=== PATIENT | female | born 1960 | race Caucasian/White ===

== ENCOUNTER 2020-10-14 07:22 | Outpatient (REF) | payer OTHER, SELFPAY ==
--- NOTE | 2020-10-14 07:27 | MM_ITS ---
EXAMINATION: MM SCREENING DIGITAL BREAST TOMOSYNTHESIS, BILATERAL CLINICAL INFORMATION: Screening. Asymptomatic. The lifetime risk of breast cancer based on the Tyrer-Cuzick Model is 13%. COMPARISON: Mammography: 10/07/2019, 09/19/2018, 04/12/2017, 02/23/2016, 12/31/2014 TECHNIQUE: Digital breast tomosynthesis is performed in both the craniocaudal and mediolateral oblique views along with computer-aided detection (CAD). Synthesized 2D images are generated from the tomosynthesis. FINDINGS: The breasts are heterogeneously dense, which may obscure small masses (ACR BI-RADS breast composition Category c). There are no significant masses, abnormal calcifications, or other abnormalities. There is biopsy clip marker anterior 12:00 left breast with stable calcifications anterior breasts. Neither breast shows interval mass or architectural abnormality or abnormal calcifications. No significant changes. MM/MM tomosynthesis screening BI IMPRESSION: No significant changes from prior studies. ASSESSMENT: BI-RADS 2: Benign RECOMMENDATION: Routine annual mammography screening. This patient's information was entered into a reminder system with a target due date for their next mammogram.
== END 2020-10-14 07:23 | disposition home or self-care (01) ==
LOC: HO.MAMMO 07:22
PROVIDERS: PCP Family Medicine; Visit Provider Family Medicine
DX: Z12.31 Encounter for screening mammogram for malignant neoplasm of breast (principal)
CPT/HCPCS: 77063; 77067

== ENCOUNTER 2021-11-15 12:24 | Outpatient (REF) | payer OTHER, SELFPAY ==
--- NOTE | ~2021-11-15 | MM_ITS ---
EXAMINATION: MM SCREENING DIGITAL BREAST TOMOSYNTHESIS, BILATERAL CLINICAL INFORMATION: Screening. Asymptomatic. The lifetime risk of breast cancer based on the Tyrer-Cuzick Model is 10%. COMPARISON: Mammography: 10/14/2020, 10/07/2019, 09/19/2018 TECHNIQUE: Digital breast tomosynthesis is performed in both the craniocaudal and mediolateral oblique views along with computer-aided detection (CAD). Synthesized 2D images are generated from the tomosynthesis. FINDINGS: The breasts are heterogeneously dense, which may obscure small masses (ACR BI-RADS breast composition Category c). There are scattered bilateral stable asymmetries and inhomogeneous pattern. No developing density or interval mass or architectural abnormality. Again, there is biopsy clip marker anterior 12:00 left breast with stable calcifications anterior upper left breast. Other bilateral scattered punctate and coarse round calcifications are again seen. The bilateral axilla and skin contours are unremarkable. No significant changes. MM/MM tomosynthesis screening BI IMPRESSION: No mammographic evidence of malignancy. ASSESSMENT: BI-RADS 2: Benign RECOMMENDATION: Routine annual mammography screening. This patient's information was entered into a reminder system with a target due date for their next mammogram.
== END 2021-11-15 12:25 | disposition home or self-care (01) ==
LOC: HO.MAMMO 12:24
PROVIDERS: PCP Family Medicine; Visit Provider Family Medicine
DX: Z12.31 Encounter for screening mammogram for malignant neoplasm of breast (principal)
CPT/HCPCS: 77063; 77067

== ENCOUNTER 2022-11-21 12:04 | Outpatient (REF) | payer OTHER, SELFPAY ==
--- NOTE | ~2022-11-21 | MM_ITS ---
EXAMINATION: MM SCREENING DIGITAL BREAST TOMOSYNTHESIS, BILATERAL CLINICAL INFORMATION: Screening. Asymptomatic. The lifetime risk of breast cancer based on the Tyrer-Cuzick Model is 10.4%. COMPARISON: Mammography: November 15, 2021 and studies dating back to December 16, 2013 TECHNIQUE: Digital breast tomosynthesis is performed in both the craniocaudal and mediolateral oblique views along with computer-aided detection (CAD). Synthesized 2D images are generated from the tomosynthesis. FINDINGS: The breasts are heterogeneously dense, which may obscure small masses (ACR BI-RADS breast composition Category c). There are no significant masses, abnormal calcifications, or other abnormalities. MM/MM tomosynthesis screening BI IMPRESSION: No significant changes ASSESSMENT: BI-RADS 1: Negative RECOMMENDATION: Routine annual mammography screening. This patient's information was entered into a reminder system with a target due date for their next mammogram.
== END 2022-11-21 12:05 | disposition home or self-care (01) ==
LOC: HO.MAMMO 12:04
PROVIDERS: PCP Family Medicine; Visit Provider Family Medicine
DX: Z12.31 Encounter for screening mammogram for malignant neoplasm of breast (principal)
CPT/HCPCS: 77063; 77067

== ENCOUNTER 2023-11-29 07:52 | Outpatient (REF) | payer OTHER, SELFPAY ==
--- NOTE | ~2023-11-29 | MM_ITS ---
EXAMINATION: MM SCREENING DIGITAL BREAST TOMOSYNTHESIS, BILATERAL CLINICAL INFORMATION: Screening. Asymptomatic. COMPARISON: Mammography: This study is compared with prior exams dating back to 2019. TECHNIQUE: Digital breast tomosynthesis is performed in both the craniocaudal and mediolateral oblique views along with computer-aided detection (CAD). Synthesized 2D images are generated from the tomosynthesis. FINDINGS: The breasts are heterogeneously dense, which may obscure small masses (ACR BI-RADS breast composition Category c). There are no significant masses, abnormal calcifications, or other abnormalities. There is a tissue marker present in the superior aspect of the left breast from prior benign percutaneous biopsy. MM/MM tomosynthesis screening BI IMPRESSION: No mammographic evidence of malignancy. ASSESSMENT: BI-RADS BI-RADS 2 - Benign Findings RECOMMENDATION: Routine annual mammography screening. 1 year F/U This examination should not preclude the clinical evaluation of a suspicious palpable abnormality. This patient's information was entered into a reminder system with a target due date for their next mammogram.
== END 2023-11-29 07:53 | disposition home or self-care (01) ==
LOC: HO.MAMMO 07:52
PROVIDERS: PCP Family Medicine; Visit Provider Family Medicine
DX: Z12.31 Encounter for screening mammogram for malignant neoplasm of breast (principal)
CPT/HCPCS: 77063; 77067

== ENCOUNTER → 2023-11-29 08:00 | Outpatient (BNV) | payer OTHER, SELFPAY | PROVIDERS: PCP Family Medicine; Visit Provider Radiology Diagnostic Radiology | DX: Z12.31 Encounter for screening mammogram for malignant neoplasm of breast (principal) | CPT/HCPCS: 77063; 77067 ==

== ENCOUNTER 2024-12-04 07:49 | Outpatient (REF) | payer OTHER, SELFPAY ==
--- OUTSIDE RECORDS SUMMARY | 2024-12-04 07:54 | XMS_ITS | Encounter Summary ---
Author Organization [facility], Address [address] [place] [address] Phone Care Team Providers Care Employment Director Name Role Phone Lg Mcgraw MD Primary Care Provider [phone] Encounter Details Date Type Department Care Team (Late Contact Info) Description 03/24/2020 Orders Only [facility] - [facility] [address] [facility] [address] [place] [phone] Judith Gould End stage renal disease (HCC) (Primary Dx) Social History Tobacco Use Types Packs/Day Years Used Date Smoking Tobacco: Never Smokeless Tobacco: Never Alcohol Use Standard Drinks/Week Comments Never 0 (1 standard drink = 0.6 oz pur e alcohol) AUDIT-C Answer Date Recorded Q1: How often do you have a drink containing alc ohol? Never 01/19/2020 Average Number of Drinks Not on file 020 Frequency of Binge Drinking Not on file 12/31 Comments Unknown Sex and Gender Information Value Date Recorded Sex Assigned at Not on file Legal Sex Female 8:13 AM EST Gender Identity Not on file Sexual Orientation Not on file documented as of this encounter Plan of Treatment Upcoming Encounters Date Type Department Care Team (Late st Contact Info) Description 10/12/2025 4:00 PM EST Office Visit [facility] - Shanna LANG [address] [place] [phone] Lg Mcgraw MD [address] [facility] [place] [phone] Scheduled Orders Name Type Priority Associated Diagnoses Orde r Schedule Basic Metabolic Panel Lab Routine End stage renal disease (HCC) Once a week for 8 Occurrences starting 03/24/2020 until 06/24/2020 CBC and Differential Lab Routine End stage renal disease (HCC) Once a week for 8 Occurrences starting 03/24/2020 until 06/24/2020 Protein, Total, Random Urine w/Creatinine (Protein/Creat Ratio) Lab Routine End stage renal disease (HCC) Once a week for 8 Occurrences starting 03/24/2020 until 06/24/2020 documented as of this encounter Visit Diagnoses Diagnosis End stage renal disease (HCC)- Primary End stage renal disease documented in this encounter Care Teams Employment Director Relationship Specialty Start Date End Date Lg Mcgraw MD [address] [place] [address] [place] [address] PCP - General Nephrology 03/20/24 documented as of this encounter
--- OUTSIDE RECORDS SUMMARY | 2024-12-04 07:54 | XMS_ITS | Encounter Summary ---
Author Organization [facility] [place], Address [address] [place] [address] Phone Care Team Providers Care Person Investigator Name Role Phone Lg Mcgraw MD Primary Care Provider [phone] Encounter Details Date Type Department Care Team (Late st Contact Info) Description 03/26/2020 Orders Only [facility] [place] - [facility] [address] [facility] 3 [place] [phone] Judith Gould End stage renal disease (HCC) Social History Tobacco Use Types Packs/Day Years [...] Visit [facility] - Shanna LANG [address] [place] [phone] Lg Mcgraw MD [address] [place] [phone] documented as of this encounter Visit Diagnoses Diagnosis End stage renal disease (HCC) End stage renal disease documented in this encounter Care Teams Person Investigator Relationship Specialty Start Date End Date Lg Mcgraw MD [address] [place] [address] [place] [address] PCP - General Nephrology 03/20/24 documented as of this encounter
--- OUTSIDE RECORDS SUMMARY | 2024-12-04 07:54 | XMS_ITS | Encounter Summary ---
Author Organization [facility] [place], Address [address] [place] [address] Phone Care Team Providers Care Snowmaker Name Role Phone Lg Mcgraw MD Primary Care Provider [phone] Encounter Details Date Type Department Care Team (Late st Contact Info) Description 04/23/2020 Orders Only [facility] [place] - [facility] [address] [facility] 3 [place] [phone] Judith Gould End stage renal disease (HCC) [...] Visit [facility] - Shanna LANG [address] [place] [phone] Lg Mcgraw MD [address] [facility] [place] [phone] documented as of this encounter Visit Diagnoses Diagnosis End stage renal disease (HCC) End stage renal disease documented in this encounter Care Teams Snowmaker Relationship Specialty Start Date End Date Lg Mcgraw MD [address] [place] [address] [place] [address] PCP - General Nephrology 03/20/24 documented as of this encounter
--- OUTSIDE RECORDS SUMMARY | 2024-12-04 07:54 | XMS_ITS | Encounter Summary ---
Author Organization [facility] [place], Address [address] [place] [address] Phone Care Team Providers Care Full Stack Web Developer Name Role Phone Lg Mcgraw MD Primary Care Provider [phone] Encounter Details Date Type Department Care Team (Late st Contact Info) Description 10/13/2024 Documentation Only [facility] [place], [address] [facility] [place] [address] Kary Pena [address] [place] [phone] Social History Tobacco Use Types Packs/Day Years [...] on file Sexual Orientation Not on file Occupation Industry Job Start Date Job End Date [employer] Not on file Not on file Not on file documented as of this encounter Plan of Treatment Upcoming Encounters Date Type Department Care Team (Late st Contact Info) Description 10/12/2025 4:00 PM EST Office Visit [facility] [place], - Shanna LANG [address] [place] [phone] Lg Mcgraw MD [address] [facility] [place] [address] documented as of this encounter Visit Diagnoses Not on filedocumented in this encounter Care Teams Full Stack Web Developer Relationship Specialty Start Date End Date Lg Mcgraw MD [address] [place] [address] [place] [address] PCP - General Nephrology 03/20/24 documented as of this encounter
--- OUTSIDE RECORDS SUMMARY | 2024-12-04 07:54 | XMS_ITS | Encounter Summary ---
Author Organization [facility] [place], Address [address] [place] [address] Phone Care Team Providers Care Ironing Pleater Name Role Phone Lg Mcgraw MD Primary Care Provider [phone] Encounter Details Date Type Department Care Team (Late Contact Info) Description 03/14/2024 Documentation Only [facility] [place], [address] [facility] [place] [address] Nazanin Patterson [address] [place] [phone] Social History Tobacco Use Types Packs/Day [...] Visit [facility] [place], - Shanna [address]ANG [address] [place] [address] Lg Mcgraw MD [address] [facility] [place] [address] documented as of this encounter Visit Diagnoses Not on filedocumented in this encounter Care Teams Ironing Pleater Relationship Specialty Start Date End Date Lg Mcgraw MD [address] [place] [address] [place] [address] PCP - General Nephrology 03/20/24 documented as of this encounter
--- OUTSIDE RECORDS SUMMARY | 2024-12-04 07:54 | XMS_ITS | Encounter Summary ---
Author Organization [facility] [place], Address [address] [place] [address] Phone Care Team Providers Care Sales Service Professional Name Role Phone Lg Mcgraw MD Primary Care Provider [phone] Encounter Details Date Type Department Care Team (Late st Contact Info) Description 04/16/2020 Orders Only [facility] [place] - [facility] [address] [facility] 3 [place] [phone] Judith Gould End stage renal disease (HCC) [...] Visit [facility] - Shanna LANG [address] [place] [phone] Lg Mcgraw MD [address] [facility] [place] [phone] documented as of this encounter Visit Diagnoses Diagnosis End stage renal disease (HCC) End stage renal disease documented in this encounter Care Teams Sales Service Professional Relationship Specialty Start Date End Date Lg Mcgraw MD [address] [place] [address] [place] [address] PCP - General Nephrology 03/20/24 documented as of this encounter
--- OUTSIDE RECORDS SUMMARY | 2024-12-04 07:54 | XMS_ITS | Encounter Summary ---
Author Organization [facility] [place], Address [address] [place] [address] Phone Care Team Providers Care Enrolled Nurse Name Role Phone Lg Mcgraw MD Primary Care Provider [phone] Encounter Details Date Type Department Care Team (Late Contact Info) Description 03/14/2024 Documentation Only [facility] [place], [address] [facility] [place] [address] Nazanin Patterson [address] [place] [phone] Social History Tobacco Use Types Packs/Day [...] Visit [facility] [place], - Shanna [address] [place] [address] Lg Mcgraw MD [address] [facility] [place] [address] documented as of this encounter Visit Diagnoses Not on filedocumented in this encounter Care Teams Enrolled Nurse Relationship Specialty Start Date End Date Lg Mcgraw MD [address] [place] [address] [place] [address] PCP - General Nephrology 03/20/24 documented as of this encounter
--- OUTSIDE RECORDS SUMMARY | 2024-12-04 07:54 | XMS_ITS | Encounter Summary ---
Author Organization [facility], Address [address] [place] [address] Phone Care Team Providers Care Massage Therapist Name Role Phone Lg Mcgraw MD Primary Care Provider [phone] Reason for Referral * Imaging (Routine) - Closed Specialty Diagnoses / Procedures Referred By Contac t Referred To Contact Diagnoses Stage 5 chronic kidney disease (HCC) Procedures Tunneled Dialysis Catheter Removal Linda Eastman MD [facility] [address] [place] [address] Referral ID Status Reason Start Date Expiration Date Visits Re quested Visits Authorized [id number] Closed 04/14/2020 10/11/2020 1 1 Encounter Details Date Type Department Care Team (Late st Contact Info) Description 04/09/2020 Orders Only [facility] - [address] [place] [address] Judith Gould Stage 5 chronic kidney disease (HCC) (Primary Dx); End stage renal disease (HCC) Social History [...] Visit [facility] [place], [facility] [address] [place] [address] Lg Mcgraw MD [address] [place] [address] [place] [phone] Scheduled Orders Name Type Priority Associated Diagnoses Orde r Schedule Phosphorus Lab Routine Stage 5 chronic kidney disease (HCC) Expected: 04/13/2020, Expires: 05/13/2021 PTH, intact Lab Routine Stage 5 chronic kidney disease (HCC) Expected: 04/13/2020, Expires: 05/13/2021 Tunneled Dialysis Catheter Removal Imaging Routine Stage 5 chronic kidney disease (HCC) Expected: 04/14/2020, Expires: 04/14/2021 documented as of this encounter Visit Diagnoses Diagnosis Stage 5 chronic kidney disease (HCC)- Primary End stage renal disease (HCC) End stage renal disease documented in this encounter Care Teams Massage Therapist Relationship Specialty Start Date End Date Lg Mcgraw MD [address] [place] [address] [place] [phone] PCP - General Nephrology 03/20/24 documented as of this encounter
--- OUTSIDE RECORDS SUMMARY | 2024-12-04 07:54 | XMS_ITS | Encounter Summary ---
Author Organization [facility] [place], Address [address] [place] [address] Phone Care Team Providers Care Rehabilitation Therapy Aide Name Role Phone Lg Mcgraw MD Primary Care Provider Encounter Details Date Type Department Care Team (Late st Contact Info) Description 04/04/2023 Documentation Only [facility] Nilda LANG [address] [place] [address] Linda Eastman MD Social History Tobacco Use Types Packs/Day Years [...] Visit [facility] [address] [employer] [employer] [address] Shari [address] [place] [address] Lg Mcgraw MD [address] [place] [address] [place] [address] documented as of this encounter Visit Diagnoses Not on filedocumented in this encounter Care Teams Rehabilitation Therapy Aide Relationship Specialty Start Date End Date Lg Mcgraw MD [address] [place] [address] [place] [address] PCP - General Nephrology 03/20/24 documented as of this encounter
--- OUTSIDE RECORDS SUMMARY | 2024-12-04 07:54 | XMS_ITS | Encounter Summary ---
Author Organization [facility] [place], Address [address] [place] [address] Phone Care Team Providers Care Drafter Engineering Name Role Phone Lg Mcgraw MD Primary Care Provider [phone] Encounter Details Date Type Department Care Team (Late st Contact Info) Description 05/07/2020 Orders Only [facility] [place] - [facility] [address] [facility] 3 [place] [phone] Judith Gould End stage renal disease (HCC) [...] Visit [facility] - Shanna LANG [address] [place] [phone] Lg Mcgraw MD [address] [facility] [place] [phone] documented as of this encounter Visit Diagnoses Diagnosis End stage renal disease (HCC) End stage renal disease documented in this encounter Care Teams Drafter Engineering Relationship Specialty Start Date End Date Lg Mcgraw MD [address] [place] [address] [place] [address] PCP - General Nephrology 03/20/24 documented as of this encounter
--- OUTSIDE RECORDS SUMMARY | 2024-12-04 07:54 | XMS_ITS | Encounter Summary ---
Author Organization [facility] [place], Address [address] [place] [address] Phone Care Team Providers Care Manager Produce Name Role Phone Lg Mcgraw MD Primary Care Provider [phone] Encounter Details Date Type Department Care Team (Late st Contact Info) Description 10/13/2024 Documentation Only [facility] [place], [address] [facility] [place] [address] Kary Pena [address] [place] [phone] Social History Tobacco Use Types Packs/Day [...] Visit [facility] [place], - Shanna LANG [address] [place] [phone] Lg Mcgraw MD [address] [facility] [place] [address] documented as of this encounter Visit Diagnoses Not on filedocumented in this encounter Care Teams Manager Produce Relationship Specialty Start Date End Date Lg Mcgraw MD [address] [place] [address] [place] [address] PCP - General Nephrology 03/20/24 documented as of this encounter
--- OUTSIDE RECORDS SUMMARY | 2024-12-04 07:54 | XMS_ITS | Clinical Summary ---
Author Organization [facility], Address [address] [facility] [address] [place] [address] Phone Care Team Providers Care Caterpillar Operator Name Role Phone Lg Mcgraw MD Primary Care Provider [phone] Allergies No known active allergies Medications PARoxetine (PAXIL) 20 MG tablet Take 20 mg by mouth daily 12/23/2019 Active Ascorbic Acid (vitamin C) 500 MG tablet Take 500 mg by mouth 1 (one) time each day Active Calcium Carbonate (CALCIUM 500 PO) Take by mouth Active Multiple Vitamin (MULTIVITAMIN ADULT PO) Take by mouth Active VITAMIN E PO Take by mouth Active levothyroxine (SYNTHROID, LEVOTHROID) 112 MCG tablet Take 112 mcg by mouth every morning 02/22/2023 Active losartan (COZAAR) 25 MG tablet Take 2 tablets (50 mg total) by mouth 1 (one) time each day 180 tablet 3 10/13/2024 5 Active Active Problems Problem Noted Date Diagnosed Date Essential hypertension 04/25/2023 Chronic kidney disease, stage 4 (severe) 021 Proteinuria 05/03/2021 Rapidly progressive glomerulonephritis 0 Overview (05/03/2021): Diagnosed via renal Bx on 10/31. Now off all of medications including Rituxan, prednisone Renvela, torsemide, Bactrim. Also off hemodialysis. Doing well overall. Followed by [facility] nephrology. Acute nontraumatic kidney injury 10/29/2019 Overview (10/28/2021): Last Assessment & Plan: Patient presents with several weeks of fatigue associated with dark urine, headache, muscle aches and pruritis. C3/C4 normal, anca negative. Ettrick/lamda are both elevated. Immunofixation no monoclonal bands. CRP/ESR elevated 184/75. HIV and Hepatitis panel negative. Renal US with medical-renal disease. ++GBM antibody. She is accepted to [facility] for pheresis. Awaiting a bed. S/p TDC catheter yesterday and initiation of HD w improvement in uremia sxs. Kidney Bx is pending -c/w solumedrol 1g q24h and cytoxan -transfer to [facility] when bed available. Resolved Problems Problem Noted Date Diagnosed Date Resolved Date Renal hypertension 01/24/2023 04/23/2023 Overview (04/23/2023): Last Assessment & Plan: At goal for age and comorbidities without new signs or symptoms of end organ damage. Cardiac murmur is longstanding. Microalbuminuria is only modestly improved on ARB which is disappointing. Continue current medications for now. She will f/u as scheduled with her talent management manager Dr Eastman in March and we will ask his advice about what else to do for this. Hyperglycemia 07/14/2020 04/23/2023 Overview (10/28/2021): Last Assessment & Plan: Improving. Agree with observation. Dependence on renal dialysis 01/19/2020 05/03/2021 End stage renal disease 01/19/2020 08/0 11/2020 Anasarca 11/18/2019 05/03/2021 Anemia 10/29/2019 05/03/2021 Overview (05/03/2021): Last Assessment & Plan: Status post 1 unit packed RBCs. GI consulted, upper endoscopy revealed small hiatal hernia, widely patent Schatzki ring, mild laxity of the EG junction was evident on Retroflex view from within the stomach, but was otherwise normal. Normal examined duodenum that was biopsied. IgA low, celiac biopsy pending. TTA negative. Reticulocyte count is quite low. Anemia is likely due to renal disease. Last Assessment & Plan: Status post 1 unit packed RBCs. GI consulted, upper endoscopy revealed small hiatal hernia, widely patent Schatzki ring, mild laxity of the EG junction was evident on Retroflex view from within the stomach, but was otherwise normal. Normal examined duodenum that was biopsied. IgA low, celiac biopsy pending. TTA negative. Reticulocyte count is quite low. Anemia is likely due to renal disease. Disorder of thyroid gland 10/29/2019 Overview (10/28/2021): Last Assessment & Plan: Clinically and biochemically euthyroid. -continue Levothyroxine. Last Assessment & Plan: Continue levothyroxine, recently decreased to 88 mcg daily. Last Assessment & Plan: Due for tSH. Encounters Date Type Department Care Team Description 10/13/2024 3:30 PM EST Office Visit [facility] [address] Shari LANG [address] [place] [phone] Lg Mcgraw MD Chronic kidney disease, stage 4 (severe) (HCC) (Primary Dx); Essential hypertension 10/13/2024 Documentation Only [facility] [address] [place] [address] Kary Pena 10/13/2024 Documentation Only [facility] [address] [place] [address] Kary Pena 10/13/2024 Documentation Only [facility] [address] [place] [address] Kary Pena from Last 3 Months Immunizations Name Administration Dates Next Due Hepatitis B 01/24/2020,12/25/2019,11/27/2019 Influenza Split 07/25/2016,06/08/2015 Influenza TIV (IM) 07/31/2018 Influenza, Quadrivalent, Pre servative Free 07/06/2022,06/27/2021,07/07/2019,07/30,07/31/2017 Influenza, Unspecified 07/01/2020,07/31/2018 MMR 11/16/2016,10/09/2016 Meningococcal Conjugate 11/07/2019 Meningococcal MCV4P 03/25/2020 Meningococcal, Unspecified 06/08/2020,06/08/2020 ,11/07/2019 Moderna SARS-COV-2 09/15/2021,11/24/2020, 021 Pneumococcal Conjugate 13-Valent 01/22/2020 Shingrix 08/09/2022,01/19/2022 Td 01/23/2023 Tdap 10/01/2012 Family History Medical History Relation Comments Kidney disease Mother Kidney disease Sister Had Nephrectomy Relation Status Comments Father Mother Sister Social History Tobacco Use Types Packs/Day Years [...] file Not on file Not on file Last Filed Vital Signs Vital Sign Reading Time Taken Comments Blood Pressure 126/68 09/12/2023 11:56 AM EST Pulse 66 09/12/2023 11:56 AM EST Temperature 36.9 ??C (98.5 ??F) 01/19/2020 1:13 PM ED T Respiratory Rate 14 09/12/2023 11:56 AM EST Oxygen Saturation 98% 01/19/2020 1:13 PM EDT Inhaled Oxygen Concentration - - Weight 76.7 kg (169 lb) 09/12/2023 11:56 AM EST Height 167.6 cm (5' 6 ) 09/12/2023 11:56 AM EST Body Mass Index 27.28 09/12/2023 11:56 AM EST Plan of Treatment Upcoming Encounters Date Type Department Care Team (Late st Contact Info) Description 10/12/2025 4:00 PM EST Office Visit [facility] [address] Shari LANG [address] [place] [address] Lg Mcgraw MD [address] [place] [address] [place] [address] Health Maintenance Due Date Last Done Comments Breast Cancer Screening 1960 Colorectal Cancer Screening: Annual FOBT 2009 Colorectal Cancer Screening: Sigmoidoscopy 2009 Pneumococcal Vaccine: Pediatrics (0 to 5 Years) and At-Risk Patients (6 to 64 Years) (2 of 2 - PPSV23 or PCV20) 03/18/2020 01/22/2020 Colorectal Cancer Screening: Colonoscopy 10/30/2029 10/30/2019 Hepatitis B Vaccine Aged Out 01/24/2020, 12/25/2019, 11/27/2019 No longer eligible based on patient's age to complete this topic Influenza Vaccine Completed 07/03/2024, , 07/06/2022, Additional history exists Insurance [facility] [employer] Care Teams Caterpillar Operator Relationship Specialty Start Date End Date Lg Mcgraw MD [address] [place] [address] [place] [phone] PCP - General Nephrology 03/20/24
--- OUTSIDE RECORDS SUMMARY | 2024-12-04 07:54 | XMS_ITS | Encounter Summary ---
Author Organization [facility] [place], Address [address] [place] [address] Phone Care Team Providers Care High Density Talc Coater Operator Name Role Phone Lg Mcgraw MD Primary Care Provider Encounter Details Date Type Department Care Team (Late st Contact Info) Description 04/30/2020 Orders Only [facility] [place] [facility] [address] [facility] [address] [place] [phone] Judith Gould End stage renal disease (HCC) [...] Visit [facility] - Shanna LANG [address] [place] [phone] Lg Mcgraw MD [address] [facility] [place] [phone] documented as of this encounter Visit Diagnoses Diagnosis End stage renal disease (HCC) End stage renal disease documented in this encounter Care Teams High Density Talc Coater Operator Relationship Specialty Start Date End Date Lg Mcgraw MD [address] [place] [address] [place] [address] PCP - General Nephrology 03/20/24 documented as of this encounter
--- OUTSIDE RECORDS SUMMARY | 2024-12-04 07:54 | XMS_ITS | Encounter Summary ---
Author Organization [facility] [place], Address [address] [place] [address] Phone Care Team Providers Care Speech And Hearing Clinic Director Name Role Phone Lg Mcgraw MD Primary Care Provider [phone] Encounter Details Date Type Department Care Team (Late Contact Info) Description 03/14/2024 Documentation Only [facility] [place], [address] [facility] [address] Nazanin Patterson [address] [place] [phone] Social History Tobacco Use Types Packs/Day [...] Visit [facility] [place], - Shanna LANG [address] [place] [address] Lg Mcgraw MD [address] [facility] [place] [address] documented as of this encounter Visit Diagnoses Not on filedocumented in this encounter Care Teams Speech And Hearing Clinic Director Relationship Specialty Start Date End Date Lg Mcgraw MD [address] [place] [address] [place] [address] PCP - General Nephrology 03/20/24 documented as of this encounter
--- OUTSIDE RECORDS SUMMARY | 2024-12-04 07:54 | XMS_ITS | Encounter Summary ---
Author Organization [facility] [place], Address [address] [place] [address] Phone Care Team Providers Care Mail Order Clerk Name Role Phone Lg Mcgraw MD Primary Care Provider [phone] Encounter Details Date Type Department Care Team (Late Contact Info) Description 03/14/2024 Documentation Only [facility] [place], [address] [place] [address] Nazanin Patterson [address] [place] [phone] Social History Tobacco Use Types Packs/Day [...] Visit [facility] [place], - Shanna LANG [address] [place] [address] Lg Mcgraw MD [address] [facility] [place] [address] documented as of this encounter Visit Diagnoses Not on filedocumented in this encounter Care Teams Mail Order Clerk Relationship Specialty Start Date End Date Lg Mcgraw MD [address] [place] [address] [place] [address] PCP - General Nephrology 03/20/24 documented as of this encounter
--- OUTSIDE RECORDS SUMMARY | 2024-12-04 07:54 | XMS_ITS | Encounter Summary ---
Author Organization [facility] [place], Address [address] [place] [address] Phone Care Team Providers Care Inspector Filters Name Role Phone Lg Mcgraw MD Primary Care Provider [phone] Encounter Details Date Type Department Care Team (Late st Contact Info) Description 04/04/2023 Documentation Only [facility] Nilda LANG [address] [place] [address] Linda Eastman MD Social History [...] Visit [facility] [address] Shari LANG [address] [place] [address] Lg cMgraw MD [address] [place] [address] [place] [address] documented as of this encounter Visit Diagnoses Not on filedocumented in this encounter Care Teams Inspector Filters Relationship Specialty Start Date End Date Lg Mcgraw MD [address] [place] [address] [place] [address] PCP - General Nephrology 03/20/24 documented as of this encounter
--- OUTSIDE RECORDS SUMMARY | 2024-12-04 07:54 | XMS_ITS | Encounter Summary ---
Author Organization [facility] [place], Address [address] [place] [address] Phone Care Team Providers Care Magician Helper Name Role Phone Lg Mcgraw MD Primary Care Provider [phone] Encounter Details Date Type Department Care Team (Late Contact Info) Description 03/14/2024 Documentation Only [facility] [place], [address] [facility] [address] Nazanin Patterson [address] [place] [phone] Social History Tobacco Use Types Packs/Day [...] Visit [facility] [place], - Shanna LANG [address] [place] [address] Lg Mcgraw MD [address] [facility] [place] [address] documented as of this encounter Visit Diagnoses Not on filedocumented in this encounter Care Teams Magician Helper Relationship Specialty Start Date End Date Lg Mcgraw MD [address] [place] [address] [place] [address] PCP - General Nephrology 03/20/24 documented as of this encounter
--- OUTSIDE RECORDS SUMMARY | 2024-12-04 07:54 | XMS_ITS | Encounter Summary ---
Author Organization [facility] [place], Address [address] [place] [address] Phone Care Team Providers Care Online Affiliate Marketing Manager Name Role Phone Lg Mcgraw MD Primary Care Provider [phone] Encounter Details Date Type Department Care Team (Late Contact Info) Description 02/22/2023 Documentation Only [facility] iNlda LANG [address] [place] [address] Candy Colon MD [address] [facility] [address] [place] [address] Social History Tobacco Use Types Packs/Day Years [...] Visit [facility] [place] Nilda LANG [address] [place] [address] Lg Mcgraw MD [address] [facility] [place] [address] documented as of this encounter Visit Diagnoses Not on filedocumented in this encounter Care Teams Online Affiliate Marketing Manager Relationship Specialty Start Date End Date Lg Mcgraw MD [address] [place] [address] [place] [address] PCP - General Nephrology 03/20/24 documented as of this encounter
--- OUTSIDE RECORDS SUMMARY | 2024-12-04 07:54 | XMS_ITS | Encounter Summary ---
Author Organization [facility] [place], Address [address] [place] [address] Phone Care Team Providers Care Chute Worker Name Role Phone Lg Mcgraw MD Primary Care Provider [phone] Encounter Details Date Type Department Care Team (Late st Contact Info) Description 10/13/2024 Documentation Only [facility] [place], [address] [facility] [place] [address] Kary Pena [address] [place] [phone] Social History Tobacco Use Types Packs/Day [...] Visit [facility] [place], - Shanna LANG [address] [place] [phone] Lg Mcgraw MD [address] [facility] [place] [address] documented as of this encounter Visit Diagnoses Not on filedocumented in this encounter Care Teams Chute Worker Relationship Specialty Start Date End Date Lg Mcgraw MD [address] [place] [address] [place] [address] PCP - General Nephrology 03/20/24 documented as of this encounter
--- OUTSIDE RECORDS SUMMARY | 2024-12-04 07:54 | XMS_ITS | Encounter Summary ---
Author Organization [facility] [place], Address [address] [place] [address] Phone Care Team Providers Care Seal Skinner Name Role Phone Lg Mcgraw MD Primary Care Provider [phone] Encounter Details Date Type Department Care Team (Late Contact Info) Description 02/15/2023 Documentation Only [facility] Nilda LANG [address] [place] [address] Candy Colon MD [address] [facility] [address] [place] [address] Social History Tobacco Use Types Packs/Day Years [...] Visit [facility] [place] Nilda LANG [address] [place] [address] Lg Mcgraw MD [address] [facility] [place] [address] documented as of this encounter Visit Diagnoses Not on filedocumented in this encounter Care Teams Seal Skinner Relationship Specialty Start Date End Date Lg Mcgraw MD [address] [place] [address] [place] [address] PCP - General Nephrology 03/20/24 documented as of this encounter
--- OUTSIDE RECORDS SUMMARY | 2024-12-04 07:54 | XMS_ITS | Encounter Summary ---
Author Organization [facility] [place], Address [address] [place] [address] Phone Care Team Providers Care Bacon Skin Lifter Name Role Phone Lg Mcgraw MD Primary Care Provider Encounter Details Date Type Department Care Team (Late st Contact Info) Description 04/02/2020 Orders Only [facility] [place] [facility] [address] [facility] 3 [place] [phone] Judith Gould End stage renal disease (HCC) [...] Visit [facility] - Shanna LANG [address] [place] [phone] Lg Mcgraw MD [address] [facility] [place] [phone] documented as of this encounter Visit Diagnoses Diagnosis End stage renal disease (HCC) End stage renal disease documented in this encounter Care Teams Bacon Skin Lifter Relationship Specialty Start Date End Date Lg Mcgraw MD [address] [place] [address] [place] [address] PCP - General Nephrology 03/20/24 documented as of this encounter
== END 2024-12-04 07:50 | disposition home or self-care (01) ==
LOC: HO.MAMMO 07:49
PROVIDERS: PCP Family Medicine; Visit Provider Family Medicine
DX: Z12.31 Encounter for screening mammogram for malignant neoplasm of breast (principal)
CPT/HCPCS: 77063; 77067

== ENCOUNTER → 2024-12-04 08:00 | Outpatient (BNV) | payer OTHER, SELFPAY | PROVIDERS: PCP Family Medicine; Visit Provider Internal Medicine | DX: Z12.31 Encounter for screening mammogram for malignant neoplasm of breast (principal) | CPT/HCPCS: 77063; 77067 ==